=== PATIENT | male | born 1975 | race Caucasian/White ===

== ENCOUNTER 2020-06-03 12:32 | Outpatient (CLI) | payer BC, SELFPAY ==
[2020-06-03] MEDS: diphenhydrAMINE 50 mg/mL SDV 1mL 25 MG IVP (13:30)
[2020-06-03] MEDS: acetaminophen 500 mg Tablet 1000 MG PO (13:49)
== END 2020-06-03 12:33 | disposition home or self-care (01) ==
LOC: NSACUTE 12:37
PROVIDERS: PCP Orthopaedic Surgery; Visit Provider Specialist
DX: G35 Multiple sclerosis (principal); R30.0 Dysuria; F17.210 Nicotine dependence, cigarettes, uncomplicated
CPT/HCPCS: 96365; 96366; 96375; 99204; J1200; J2350; J2930; J7040

== ENCOUNTER 2020-06-30 10:48 | Outpatient (CLI) | payer BC, SELFPAY ==
--- NOTE | 2020-06-30 11:00 | MR_ITS ---
WS: [id number] MRI LUMBAR SPINE WITH AND WITHOUT CONTRAST. HISTORY: G35 - Multiple sclerosis COMPARISON: None available. TECHNIQUE: Sagittal and axial multisequence imaging is submitted. Sagittal and axial T1 fat sat seque nces post-ProHance 17 cc IV. Mild straightening of the normal lumbar lordosis. Prior lumbar fusion with both fusion hardware from L1 to L3. No marrow edema or acute fractures identified. Very limited evaluation of the L2 vertebral body due to artifact from the fusion. Disc spaces and vertebral body heights are well-preserved. Conus is slightly distorted but and at the L1-2 level. L1-L2: Mild annular disc bulging. L2-L3: No stenosis. L3-L4: Mild ligamentum flavum hypertrophy. No stenosis. L4-L5: Mild facet joint arthritis without stenosis. L5-S1: A tiny central disc protrusion with no stenosis. Postcontrast images are negative. No enhancing lesions visualized in the lumbar spine. The conus is o bscured by artifact from the hardware related to the fusion. MR/MR lumbar spine wo/w con [id number] IMPRESSION: 1. Prior lumbar fusion from L1 to L2. Fusion hardware is causing significant a rtifact through the L2 vertebral body and the conus. 2. No areas of abnormal enhancement identified or stenosis.
--- NOTE | 2020-06-30 11:45 | MR_ITS ---
WS: [id number] MRI THORACIC SPINE with and without contrast. HISTORY: G35 - Multiple sclerosis COMPARISON: None available. TECHNIQUE: Multiplanar sequences are performed in sagittal and axial planes. Anterior cervical fusion at C5-6. Seen only on the sagittal survey is some very slight increased sign al in the central cervical cord at the C4 level which cannot be adequately evaluated without a dedica refugio cervical MRI exam. Very slight increase in the thoracic kyphosis. No marrow edema or fracture. Signal within the cord is normal. No atrophy or cord enlargement. There is no enhancement. Note T2 hyperintensities. No disc p rotrusions or stenosis. T1-2: Normal. T2-3: Normal. T3-4: Normal. T4-5: Normal. T5-6: Normal. T6-7: Very tiny central disc protrusion with annular fissure. T7-8: Normal. T8-9: Mild bilateral facet joint arthritis. T9-10: Normal. T10-11: Mild facet and ligamentum flavum hypertrophy. Mild LEFT foraminal narrowing. T11-12: Normal. MR/MR thoracic spine wo/w [id number] IMPRESSION: 1. No demyelinating lesions within the thoracic cord. 2. Seen only on the sagittal survey is increased signal in the cervical cord a t C4 which may be a demyelinating lesion. If prior cervical MRI has not been pe rformed suggest evaluation of the cervical spine by contrast enhanced MRI.
== END 2020-06-30 10:49 | disposition home or self-care (01) ==
LOC: RADSHAW 10:53
PROVIDERS: PCP Specialist; Visit Provider Specialist
DX: G35 Multiple sclerosis (principal); R93.7 Abnormal findings on diagnostic imaging of other parts of musculoskeletal system; Z98.1 Arthrodesis status
CPT/HCPCS: 72157; 72158; A9579

== ENCOUNTER 2020-07-02 08:31 | Outpatient (CLI) | payer BC, SELFPAY ==
--- NOTE | 2020-07-02 08:45 | MR_ITS ---
WS: [id number] MRI HEAD WITH CONTRAST TECHNIQUE: Sagittal T1, T2 axial, T2 axial FLAIR, axial susceptibility weighted imaging, axial diffus ion weighted images, and coronal T2 images were obtained. Pre and post-T1 axial and post T1 coronal i mages. ADC and FSPGR images. CLINICAL INFORMATION: G35 - Multiple sclerosis COMPARISON: None. FINDINGS: No evidence of restricted diffusion to suggest acute ischemia. Ventricular system and basal cisterns are patent. Mild patchy supratentorial periventricular and pericallosal white matter changes more pro minent in the parietal and occipital periventricular white matter. Small white matter lesions about t he splenium involving the major forceps. No abnormal gadolinium enhancement. No enhancing lesions to indicate active demyelinating disease. Normal posterior fossa. Normal vascular flow voids at the skull base. No extra-axial fluid collection s. Paranasal sinuses and mastoid air cells are well aerated. Normal optic chiasm and pituitary infund ibulum. No significant atrophy of the corpus callosum. No significant T1 hypointense lesion load. No hemoside rin on the susceptibility weighted images. MR/MR head wo/w con [id number] IMPRESSION: 1. Mild patchy supratentorial periventricular and pericallosal white matter ch anges suspicious for demyelinating disease. 2. No enhancing lesions to indicate active disease. 3. No significant atrophy of the corpus callosum. No significant parenchymal v olume loss. 4. No significant T1 hypointense lesion load.
--- NOTE | 2020-07-02 09:30 | MR_ITS ---
WS: [id number] MRI CERVICAL SPINE NONCONTRAST AND CONTRAST TECHNIQUE: Sagittal T1, T2 and STIR imaging. Axial T2, gradient, and fiesta imaging. CLINICAL INFORMATION: G35 - Multiple sclerosis COMPARISON: Recent thoracic and lumbar spine MRI FINDINGS: Straightening of the normal cervical lordosis. Prior postoperative changes anterior cervical fusion C 5-C6. No high-grade central canal stenosis. T2 hyperintense lesion at the C3-4 level involving the do rsal columns. This extends over approximately 1.5 CM. Additional eccentric lesion at the C4 level ecc entric to the right suspicious for demyelinating disease. Additional T2 hyperintense lesion partially visualized at the C7-T1. No enhancing lesions to indicate active disease. No significant cord atroph y. C2-C3: Normal. C3-C4: Mild bilateral foraminal narrowing. Mild facet arthropathy. Spinal canal is patent. C4-C5: Mild left greater than right bony foraminal narrowing. Spinal canal is patent. Mild facet arth ropathy. C5-C6: Postoperative changes anterior interbody cervical fusion. Mild facet arthropathy. Spinal canal and foramen are patent. C6-C7: Moderate left and mild right bony foraminal narrowing. Mild disc osteophytic ridging. Spinal c anal is patent. C7-T1: Mild left and no significant right foraminal narrowing. Spinal canal is patent MR/MR cervical spine wo/w [id number] IMPRESSION: 1. T2 hyperintense dorsal midline lesion at the C4 level extending over approx imately 1.5 cm corresponds to lesion seen on the prior imaging. Additional ecce ntric T2 hyperintense lesion at this level. 2. Additional partially visualized T2 hyperintense cord lesion at C7-T1 edge o f the [id number]. 3. Findings are suspicious for demyelinating disease considering intracranial findings 4. No enhancing lesions to indicate active disease. 5. No significant cord atrophy. 6. Prior postoperative changes anterior interbody cervical fusion C5-C6. 7. Mild to moderate bony foraminal narrowing described above worse at left C6- 7.
== END 2020-07-02 08:32 | disposition home or self-care (01) ==
LOC: RADSHAW 08:32
PROVIDERS: PCP Specialist; Visit Provider Specialist
DX: G35 Multiple sclerosis (principal)
CPT/HCPCS: 70553; 72156; A9579

== ENCOUNTER 2020-12-02 10:10 | Outpatient (CLI) | payer BC, SELFPAY ==
[2020-12-02] MEDS: acetaminophen 500 mg Tablet 1000 MG PO (10:22)
[2020-12-02] MEDS: diphenhydrAMINE 50 mg/mL SDV 1mL 12.5 MG IVP (10:28)
== END 2020-12-02 10:11 | disposition home or self-care (01) ==
PROVIDERS: PCP Specialist; Visit Provider Specialist
DX: G35 Multiple sclerosis (principal); R56.9 Unspecified convulsions; G89.0 Central pain syndrome; R20.0 Anesthesia of skin; R20.2 Paresthesia of skin; F17.210 Nicotine dependence, cigarettes, uncomplicated
CPT/HCPCS: 96365; 96366; 96375; 99215; J1200; J2350; J2930; J7040

== ENCOUNTER 2021-02-08 18:15 | Emergency (ER) | payer BC, SELFPAY ==
--- NOTE | 2021-02-08 18:15 | W.ED.GENADLT ---
HPI - General Adult General: Chief complaint: Seizure Stated complaint: SEIZURES History of Present Illness: HPI narrative: Mr. Eugene is a 45-year-old male with a significant past medical history of multiple sclerosis who presents to the emergency department with a chief complaint of seizure. He reports being at his baseline health and feeling normal earlier today. He perhaps ate a little less than typical however was not exerting himself. He sat down and was working on prepping food for dinner when he had sudden onset of seizure-like activity. This was witnessed and reportedly there was no associated fall/head trauma. The patient did have urinary incontinence but no tongue biting. He does not have a seizure history. Subsequent to this event he had marked weakness which has been gradually improving. He has never had similar episodes in the past. The weakness is symmetric. He has baseline numbness and tingling associated with his multiple sclerosis. There are no other specific exacerbating or alleviating factors reported. Review of Systems General: Reports: 10 or more systems reviewed and unremarkable except in HPI and below Narrative: CONSTITUTIONAL: denies fever, fatigue, see HPI EYES - denies pain, denies loss of vision EARS - denies ear issues. NOSE - denies congestion or rhinorrhea. THROAT - denies sore throat or difficulty swallowing. CARDIOVASCULAR - denies chest pain and palpitations RESPIRATORY - denies shortness of breath and cough GASTROINTESTINAL - denies abdominal pain, no nausea vomiting, no changes in bowel habits GENITOURINARY - denies dysuria or urinary frequency MUSCULOSKELETAL- denies deformity or pain SKIN - denies rashes or new changed skin lesions NEUROLOGIC -baseline sensory changes, new onset global weakness, seizure HEMATOLOGIC/LYMPHATIC - denies easy bruising or lymphadenopathy. CR[facility]ICAL ACCESS [facility] ED PFSH: Medical History (Updated 02/08/21 @ 21:28 by Rl Zafar MD) Multiple sclerosis Seizure Surgical History History of back surgery Family History Other CAD (coronary artery disease) Cancer Social History Smoking and tobacco status: current every day smoker Alcohol intake: never History of recent travel: No Physical Exam Narrative: EXAM NARRATIVE: GENERAL/CONSTITUTIONAL - well-appearing. No acute distress. Generalized symmetric weakness Eyes - PERRL, no conjunctival injection ENMT - Atraumatic external nose and ears. Moist mucous membranes NECK - supple. trachea midline CARDIOVASCULAR - regular rate and rhythm. Peripheral pulses 2+ and equal RESPIRATORY -clear to auscultation bilaterally. No retractions or accessory muscle use. ABDOMEN/GI - Nontender/Nondistended. No tenderness to percussion or evidence of peritonitis MSK - Extremities without obvious deformity or tenderness to palpation SKIN - Warm, Dry NEURO - alert and appropriately oriented. strength and sensation intact. Moves all extremities equally. Cranial nerves II through XII intact. PSYCH - Appropriate mood and affect Course ED course: - Patient was seen and evaluated by me at bedside - Patient placed on cardiac monitors, IV access obtained - Initial evaluation notable for no acute distress, nontoxic appearance. No focal neurologic deficits though patient does have mild generalized weakness which is symmetric in upper lower extremities. - Labs and imaging obtained and reviewed - Fluids given - Labs notable for mild leukocytosis which is likely reactive secondary to seizure. No significant metabolic abnormality to explain symptoms. - Imaging notable for no acute intracranial hemorrhage or mass. No evidence of infection on chest x-ray. - Upon serial reexamination after treatment the patient was improved after fluids with return to normal baseline strength and function. Case was discussed with Dr. Hernandez of neurology who recommended antiepileptic medications which were prescribed. Patient will be scheduled for neurology follow-up and EEG. - Based on patient history, evaluation, labs, and imaging as interpreted the most likely cause of the patient's condition is seizure - The results of ED evaluation were discussed with the patient including prescriptions and/or symptomatic cares including appropriate and responsible use, followup plan, and return precautions. Seizure precautions discussed. The patient verbalized understanding and felt safe for discharge. - Patient discharged in satisfactory condition. Vital Signs: Vital signs: Vital Signs Temperature 97.7 F 02/08/21 18:18 Pulse Rate 96 02/08/21 22:25 Respiratory Rate 20 H 02/08/21 22:25 Blood Pressure 95/59 02/08/21 22:25 Pulse Oximetry 96 02/08/21 22:25 MDM - General Adult Medical Records: Attestation: I reviewed the patient's medical records. Lab Data: Attestation: I reviewed the patient's lab results. Labs: Lab Results 02/08/21 02/08/21 02/08/21 Range/Units 18:40 18:40 19:03 WBC 14.0 H (4.0-10.0) 10^3/ uL RBC 4.54 (4.1-5.3) 10^6/u L Hgb 13.8 (11.7-16.6) g/dL Hct 43.9 (42.0-52.0) % MCV 96.7 H (80-94) fL MCH 30.4 (28.0-34.0) pg MCHC 31.4 (30.0-36.0) g/dL RDW 14.1 (12.1-15.1) % Plt Count 244 (130-400) 10^3/c mm MPV 9.3 (7.4-10.4) fL Neut % (Auto) 83.1 % Lymph % (Auto) 8.1 % Dupage % (Auto) 6.3 % Eos % (Auto) 1.1 % Baso % (Auto) 0.6 % Neut # (Auto) 11.63 H (1.8-7.7) 10^3/u L Lymph # (Auto) 1.1 (0.8-4.8) 10^3/u L Dupage # (Auto) 0.9 (0.2-0.9) 10^3/u L Eos # (Auto) 0.2 (0.0-0.8) 10^3/u L Baso # (Auto) 0.1 (0.0-0.1) 10^3/u L Nucleated RBC % (a uto) 0 % Nucleated RBCs # 0.0 /100WBC Sodium 139 (136-145) mmol/L Potassium 3.9 (3.5-5.1) mmol/L Chloride 107 (98-107) mmol/L Carbon Dioxide 24 (22-29) mmol/L Anion Gap 11.9 (5-19) BUN 14 (6-20) mg/dL Creatinine 0.8 (0.7-1.2) mg/dL GFR Calculation 105.0 (90-130) mL/min Glucose 87 (65-115) mg/dL POC Glucose 89 (70-110) mg/dL Calculated Osmolal ity 288 (285-295) mOsm/k g Calcium 8.3 L (8.5-10.5) mg/dL Phosphorus 3.2 (2.5-4.5) mg/dL Magnesium 2.0 (1.7-2.3) mg/dL Total Bilirubin 0.2 (0.15-1.2) mg/dL AST 13 (0-40) U/L ALT 13 (0-41) U/L Alkaline Phosphata se 53 (40-130) IU/L Total Protein 6.0 L (6.6-8.7) g/dL Albumin 3.8 (3.5-5.2) g/dL Globulin 2.2 (1.3-4.6) g/dL TSH 0.98 (0.27-4.20) uIU/ mL SARS-CoV-2 Ag (Rap id) (Negative) 02/08/21 Range/Units 19:32 WBC (4.0-10.0) 10^3/ uL RBC (4.1-5.3) 10^6/u L Hgb (11.7-16.6) g/dL Hct (42.0-52.0) % MCV (80-94) fL MCH (28.0-34.0) pg MCHC (30.0-36.0) g/dL RDW (12.1-15.1) % Plt Count (130-400) 10^3/c mm MPV (7.4-10.4) fL Neut % (Auto) % Lymph % (Auto) % Dupage % (Auto) % Eos % (Auto) % Baso % (Auto) % Neut # (Auto) (1.8-7.7) 10^3/u L Lymph # (Auto) (0.8-4.8) 10^3/u L Dupage # (Auto) (0.2-0.9) 10^3/u L Eos # (Auto) (0.0-0.8) 10^3/u L Baso # (Auto) (0.0-0.1) 10^3/u L Nucleated RBC % (a uto) % Nucleated RBCs # /100WBC Sodium (136-145) mmol/L Potassium (3.5-5.1) mmol/L Chloride (98-107) mmol/L Carbon Dioxide (22-29) mmol/L Anion Gap (5-19) BUN (6-20) mg/dL Creatinine (0.7-1.2) mg/dL GFR Calculation (90-130) mL/min Glucose (65-115) mg/dL POC Glucose (70-110) mg/dL Calculated Osmolal ity (285-295) mOsm/k g Calcium (8.5-10.5) mg/dL Phosphorus (2.5-4.5) mg/dL Magnesium (1.7-2.3) mg/dL Total Bilirubin (0.15-1.2) mg/dL AST (0-40) U/L ALT (0-41) U/L Alkaline Phosphata se (40-130) IU/L Total Protein (6.6-8.7) g/dL Albumin (3.5-5.2) g/dL Globulin (1.3-4.6) g/dL TSH (0.27-4.20) uIU/ mL SARS-CoV-2 Ag (Rap id) Negative (Negative) Imaging Data^: CXR: Attestation: I personally reviewed and interpreted this imaging study as follows: My impression: No lobar consolidation. No pneumothorax Radiologist's impression: No acute findings Discharge Plan Discharge Patient Disposition: Home Clinical Impression: Seizure Condition: Stable Prescriptions: New Keppra XR 500 mg tablet extended release 24 hr 1,000 mg PO DAILY 30 Days Qty: 60 RF: 0 No Action Chantix 0.5 mg tablet 0.5 mg PO DAILY RF: 0 cyclobenzaprine 10 mg tablet 10 mg PO TID RF: 0 simvastatin 20 mg tablet 20 mg PO DAILY RF: 0 docusate sodium 100 mg capsule 100 mg PO DAILY RF: 0 hydrocodone-acetaminophen 10-325 mg tablet 1 tab PO BID PRNRF: 0 prednisone 10 mg tablet 10 mg PO DAILY RF: 0 ibuprofen 200 mg tablet 800 mg PO Q12H PRNRF: 0 gabapentin 400 mg capsule 400 mg PO QID Qty: 120 RF: 5 duloxetine [Cymbalta] 60 mg capsule,delayed release(DR/EC) 60 mg PO DAILY Qty: 30 RF: 5 tamsulosin 0.4 mg capsule 0.4 mg PO DAILY Qty: 30 RF: 5 baclofen 20 mg tablet 20 mg PO DAILY Qty: 30 RF: 5 sulfamethoxazole-trimethoprim 800-160 mg tablet 1 tab PO DAILY 10 Days Qty: 10 RF: 0 sulfamethoxazole-trimethoprim 800-160 mg tablet 1 tab PO DAILY 10 Days Qty: 10 RF: 0 Discharge Orders: Discharge ED (Routine); Ordered 02/08/21 Ordered By: lR Zafar Referrals: Rafia Hernandez MD [Primary Care Provider] - Discharge Diet: Usual diet Discharge Activity: Resume usual activity Patient Instructions: New-Onset Seizure in Adults (ED) Activity Restrictions/Additional Instructions: Thank you for visiting the emergency department. You were seen and evaluated for seizure. The exact cause of this is somewhat unclear though may be related to your MS. After discussion with your neurologist you will be started on a medication to prevent seizures. Please take this as directed. Please follow-up with your primary care provider and neurologist. As discussed please follow seizure precautions including not driving for 6 months and not performing any dangerous tasks were you to have another seizure. Please return to the emergency department if you experience recurrent seizures or anything else that you are concerned about and feel needs emergency department evaluation. Coding Level of Care Code ED Sheltered Workshop Worker for Porfirio Torres
[2021-02-08 18:18] VITALS: BP 90/51; PULSE 71; RESP 17; TEMP 36.5; O2SAT 96; BMI 23.7
[2021-02-08 18:25] VITALS: BP 107/76; PULSE 69; RESP 22; O2SAT 97
--- NOTE | 2021-02-08 18:29 | XRR_ITS ---
PROCEDURE INFORMATION: Exam: XR Chest Exam date and time: 02/08/2021 6:29 PM Age: 45 years old Clinical indication: Other: Weakness; Additional info: Weakness, new seizures TECHNIQUE: Imaging protocol: XR of the chest. Views: 1 view. COMPARISON: MR cervical spine wo/w [id number] 07/02/2020 9:07 AM FINDINGS: Lungs: Unremarkable. No consolidation. Pleural spaces: Unremarkable. No pleural effusion. No pneumothorax. Heart/Mediastinum: Unremarkable. No cardiomegaly. Bones/joints: Unremarkable. XR/XR chest 1V portable [id number] IMPRESSION: No acute findings.
--- NOTE | 2021-02-08 18:29 | CTR_ITS ---
PROCEDURE INFORMATION: Exam: CT Head Without Contrast Exam date and time: 02/08/2021 6:29 PM Age: 45 years old Clinical indication: Patient HX: New seizure activity; Additional info: New onset seizures TECHNIQUE: Imaging protocol: Computed tomography of the head without contrast. Radiation optimization: All CT scans at this facility use at least one of these dose optimization techniques: automated exposure control; mA and/or kV adjustment per patient size (includes targeted exams where dose is matched to clinical indication); or iterative reconstruction. COMPARISON: MR head wo/w con [id number] 07/02/2020 9:40 AM RADIATION DOSE METRICS: Total DLP (mGy-cm): 902.27 FINDINGS: Brain: Normal. No hemorrhage. Unremarkable white matter. No mass effect. Cerebral ventricles: No ventriculomegaly. Paranasal sinuses: Mucosal thickening in the ethmoid sinuses. Mastoid air cells: Visualized mastoid air cells are well aerated. Bones/joints: Unremarkable. No acute fracture. Soft tissues: Unremarkable. CT/CT head wo con* [id number] IMPRESSION: No acute intracranial abnormality. Radiation Dose CTDIVOL = (mGy): DLP = 902.27 (mGy-cm)
[2021-02-08 18:30] VITALS: O2SAT 97
[2021-02-08 18:50] LABS: Basophils # 0.1 10^3/uL (0.0-0.1); Basophils % 0.6 %; Eosinophils # 0.2 10^3/uL (0.0-0.8); Eosinophils % 1.1 %; Hematocrit 43.9 % (42.0-52.0); Hemoglobin 13.8 g/dL (11.7-16.6); Lymphocytes # 1.1 10^3/uL (0.8-4.8); Lymphocytes % 8.1 %; Mean Corpuscular HGB Conc 31.4 g/dL (30.0-36.0); Mean Corpuscular Hemoglobin 30.4 pg (28.0-34.0); Mean Corpuscular Volume 96.7 fL (80-94); Mean Platelet Volume 9.3 fL (7.4-10.4); Monocytes # 0.9 10^3/uL (0.2-0.9); Monocytes % 6.3 %; Neutrophils # 11.63 10^3/uL (1.8-7.7); Neutrophils % 83.1 %; Nucleated Red Blood Cells % 0 %; Platelet Count 244 10^3/cmm (130-400); Red Blood Count 4.54 10^6/uL (4.1-5.3); Red Cell Distribution Width 14.1 % (12.1-15.1)
[2021-02-08] MEDS: sodium chloride 0.9% 1,000 ML 999 ML IV (18:57)
[2021-02-08 19:05] LABS: Glucose Point of Care 89 mg/dL (70-110)
[2021-02-08 19:27] LABS: Alanine Aminotransferase 13 U/L (0-41); Albumin Level 3.8 g/dL (3.5-5.2); Alkaline Phosphatase 53 IU/L (40-130); Anion Gap 11.9 (5-19); Aspartate Amino Transferase 13 U/L (0-40); Blood Urea Nitrogen 14 mg/dL (6-20); Calcium 8.3 mg/dL (8.5-10.5); Carbon Dioxide 24 mmol/L (22-29); Chloride 107 mmol/L (98-107); Creatinine Clr Calc Pharmacy 130.5193; Globulin 2.2 g/dL (1.3-4.6); Glucose 87 mg/dL (65-115); Osmolality Calculated 288 mOsm/kg (285-295); Phosphorus 3.2 mg/dL (2.5-4.5); Potassium 3.9 mmol/L (3.5-5.1); Sodium 139 mmol/L (136-145); Thyroid Stimulating Hormone 0.98 uIU/mL (0.27-4.20); Total Bilirubin 0.2 mg/dL (0.15-1.2)
[2021-02-08 22:03] LABS: SARS Covid-2 Antigen Negative (Negative)
[2021-02-08 22:25] VITALS: BP 95/59; PULSE 96; RESP 20; O2SAT 96
--- NOTE | 2021-02-09 08:40 | DCPLANNER ---
imaging manager had message to schedule a follow up appointment for patient with neurology, and an EEG. imaging manager emailed patients information to the neurology clinic. Patients information will be printed and reviewed. Clinic will call patient with appointment information. imaging manager also had order for an EEG, will fax that order to Dr. Melo office. Clinic will call patient with both appointments.
--- NOTE | 2021-02-10 07:56 | DCPLANNER ---
Patient has a follow up appointment scheduled for Wednesday, February 10, 2021 at 12:[address] Hernandez. Clinic will call patient with appointment information.
--- NOTE | 2021-02-20 14:32 | DCPLANNER ---
Patient had a follow up appointment scheduled for 02.10.21 with - patient did attend appointment.
== END 2021-02-08 22:27 | disposition home or self-care (01) ==
PROVIDERS: Emergency Provider Emergency Medicine; PCP Specialist
DX: R56.9 Unspecified convulsions (principal); G35 Multiple sclerosis; F17.210 Nicotine dependence, cigarettes, uncomplicated; Z20.822 Contact with and (suspected) exposure to COVID-19
CPT/HCPCS: 36416; 70450; 71045; 80053; 82962; 83735; 84100; 84443; 85025; 87426; 96361; 96374; 99284; J1953; J7030

== ENCOUNTER → 2021-02-10 11:42 | Outpatient (BNVA) | payer BC, SELFPAY | PROVIDERS: PCP Specialist; Visit Provider Specialist | DX: G35 Multiple sclerosis (principal); R56.9 Unspecified convulsions; G89.0 Central pain syndrome; R55 Syncope and collapse; R00.2 Palpitations; F17.200 Nicotine dependence, unspecified, uncomplicated | CPT/HCPCS: 99215 ==

== ENCOUNTER → 2021-04-06 15:02 | Outpatient (BNVA) | payer BC, SELFPAY | PROVIDERS: PCP Specialist; Visit Provider Specialist | DX: R55 Syncope and collapse (principal); F17.200 Nicotine dependence, unspecified, uncomplicated | CPT/HCPCS: 95816 ==

== ENCOUNTER → 2021-04-07 09:54 | Outpatient (BNVA) | payer BC, SELFPAY | PROVIDERS: PCP Specialist; Visit Provider Specialist | DX: G35 Multiple sclerosis; R56.9 Unspecified convulsions; Z71.85 Encounter for immunization safety counseling; F17.200 Nicotine dependence, unspecified, uncomplicated; R55 Syncope and collapse | CPT/HCPCS: 99215 ==

== ENCOUNTER 2021-06-02 10:13 | Outpatient (CLI) | payer BC, SELFPAY ==
[2021-06-02 10:23] VITALS: BP 107/67; PULSE 63; RESP 16; TEMP 36.3; O2SAT 100
[2021-06-02] MEDS: acetaminophen 500 mg Tablet 1000 MG PO (10:50)
[2021-06-02] MEDS: sodium chloride 0.9% 250 ML 50 ML IV (10:54)
[2021-06-02] MEDS: diphenhydrAMINE 50 mg/mL SDV 1mL 25 MG IV (10:54)
[2021-06-02 11:39] VITALS: BP 96/67; PULSE 56; RESP 16; TEMP 36.2; O2SAT 98
[2021-06-02 12:19] VITALS: BP 101/65; PULSE 65; RESP 16; TEMP 36.3; O2SAT 97
[2021-06-02 13:29] VITALS: BP 104/72; PULSE 63; RESP 16; TEMP 36.3; O2SAT 98
== END 2021-06-02 10:14 | disposition home or self-care (01) ==
LOC: ONCMED 10:17
PROVIDERS: PCP Specialist; Referring Provider Specialist; Visit Provider Internal Medicine Medical Oncology
DX: Z51.12 Encounter for antineoplastic immunotherapy (principal); G35 Multiple sclerosis
CPT/HCPCS: J1200; J2350; J2930; J7040; J7050

== ENCOUNTER → 2023-12-05 13:56 | Outpatient (BNVA) | payer BC, SELFPAY | PROVIDERS: PCP Nurse Practitioner Family; Visit Provider Nurse Practitioner Family | DX: G35 Multiple sclerosis (principal); R35.0 Frequency of micturition; Z79.899 Other long term (current) drug therapy; Z13.6 Encounter for screening for cardiovascular disorders; R13.10 Dysphagia, unspecified; Z12.11 Encounter for screening for malignant neoplasm of colon; N40.0 Benign prostatic hyperplasia without lower urinary tract symptoms | CPT/HCPCS: 80053; 80061; 81003; 82306; 83036; 84443; 85025 ==

== ENCOUNTER 2024-03-01 07:54 | Day surgery (SDC) | payer BC, SELFPAY ==
[2024-03-01 08:09] VITALS: BP 114/69; PULSE 58; RESP 16; TEMP 36.8; O2SAT 99
[2024-03-01 08:10] VITALS: BMI 24.4
[2024-03-01] MEDS: sodium chloride 0.9% 1,000 ML 30 ML IV (08:20)
--- NOTE | 2024-03-01 08:41 | W.PM.OPSFHP ---
Same Day Surgery H&P Indication for Procedure/HPI DATE OF PROCEDURE: March 01, 2024 CHIEF COMPLAINT/INDICATIONFOR SURGICAL PROCEDURE: reflux and need for screening PREOP DIAGNOSIS: reflux and need for screening PLANNED PROCEDURE: Operation Date: 03/01/24 09:05 Proposed Procedures p EGD 82976, 44162, G0105, R13.101, Z12.11(Not Applicable) - Tree Caal MD s Colonoscopy(Not Applicable) - Tree Caal MD Medications/Allergies* Home Medications Medication Instructions Recorded Confirmed Type ibuprofen 200 mg tablet 800 mg PO Q12H PRN Pain 06/03/20 03/01/24 History ocrelizumab 30 mg/mL intravenous 30 mg IV .[id number] 04/06/21 03/01/24 History solution (Ocrevus) magnesium 1 tab PO DAILY 02/28/24 03/01/24 History tamsulosin 0.4 mg capsule 0.4 mg PO DAILY 02/28/24 03/01/24 History Allergies/Adverse Reactions Allergy/AdvReac Type Severity Reaction Status Date / Time Penicillins Allergy Unknown Unknown Verified 02/28/24 10:11 fluoxetine [From Prozac] Allergy swelling Verified 02/28/24 10:11 Current Medications: Generic Name Dose Route Start Last Admin Trade Name Freq PRN Reason Stop Dose Admin Sodium Chloride 1,000 mls @ 30 mls/hr 03/01/24 08:00 03/01/24 08:20 Sodium Chloride 0.9% IV 30 mls/hr .Q24H SUDHA Administration Pertinent History/Comorbid Conditions* Medical History (Updated 12/09/23 @ 08:49 by KOREY Menjivar) BPH (benign prostatic hyperplasia) Colon cancer screening Dysphagia Encounter for screening for cardiovascular disorders Medication management Urinary frequency Multiple sclerosis Seizure Surgical History (Updated 06/03/20 @ 19:58 by Rafia Hernandez MD) History of back surgery Family History (Updated 09/20/19 @ 14:44 by AIDAN Muniz) CAD (coronary artery disease) Cancer Social History Smoking and tobacco/nicotine status: current every day tobacco/nicotine user Alcohol intake: never Substance/Drug Use: never Pertinent Exam Findings alert, oriented x 3 and clear to auscultation bilaterally Recommendations Surgery/Procedure today Coding Level of Care Code Acute Code for Chg Fwd
--- NOTE | 2024-03-01 08:51 | ANES.PREANE2 ---
Pre-Anesthetic Assessment Height/Weight: Height 1.83 m Weight 81.647 kg Temp Pulse Resp BP Pulse Ox O2 Del Method 98.2 F 58 L 16 114/69 99 Room Air 03/01/24 08:09 03/01/24 08:09 03/01/24 08:09 03/01/24 08:09 03/01/24 08:09 03/01/24 08:09 Preop Diagnosis: reflux and need for screening Operation Date: 03/01/24 09:05 Proposed Procedures p EGD 29586, 94738, G0105, R13.101, Z12.11(Not Applicable) - Tree Caal MD s Colonoscopy(Not Applicable) - Tree Caal MD Familial anesthetic complications: None Was Beta Aliya taken within 24 hours: N/A Was Clonidine taken within 24 hours: N/A Last intake: Intake Last Liquid Date 02/29/24 Last Liquid Time 22:30 Last Solid Date 02/28/24 Last Solid Time 19:00 Social Tobacco and No alcohol Exam alert, oriented x 3, clear to auscultation bilaterally and regular rate & rhythm Airway Mallampati: Class II Dentition: chipped Neuropsych Seizure (1 seizure, over 1 year ago, thought to be related to BP) Multiple Sclerosis- patient informed of risk of flair associated with anesthesia Anesthetic Plan ASA status: 2 Anesthesia: MAC Risk of > 500 ml blood loss (7ml/kg in children): No Medications/Allergies Home Medications Medication Instructions Recorded Confirmed Last Taken Type ibuprofen 200 mg tablet 800 mg PO Q12H PRN Pain 06/03/20 03/01/24 02/29/24 History ocrelizumab 30 mg/mL intravenous 30 mg IV .[id number] 04/06/21 03/01/24 01/02/24 History solution (Ocrevus) magnesium 1 tab PO DAILY 02/28/24 03/01/24 02/27/24 History tamsulosin 0.4 mg capsule 0.4 mg PO DAILY 02/28/24 03/01/24 02/27/24 History Allergies Allergy/AdvReac Type Severity Reaction Status Date / Time Penicillins Allergy Unknown Unknown Verified 02/28/24 10:11 fluoxetine [From Prozac] Allergy swelling Verified 02/28/24 10:11 Current Medications Generic Name Dose Route Start Last Admin Trade Name Freq PRN Reason Stop Dose Admin Sodium Chloride 1,000 mls @ 30 mls/hr 03/01/24 08:00 03/01/24 08:20 Sodium Chloride 0.9% IV 30 mls/hr .Q24H SUDHA Administration PFSH Anesthesia Medical History (Updated 12/09/23 @ 08:49 by KOREY Menjivar) BPH (benign prostatic hyperplasia) Colon cancer screening Dysphagia Encounter for screening for cardiovascular disorders Medication management Urinary frequency Multiple sclerosis Seizure Surgical History History of back surgery Family History Other CAD (coronary artery disease) Cancer Social History Smoking and tobacco/nicotine status: current every day tobacco/nicotine user Alcohol intake: never Substance/Drug Use: never Data Anesthesia Cardiac Studies: No Data to Display
[2024-03-01 10:10] VITALS: BP 86/71; PULSE 60; RESP 16; TEMP 36.1; O2SAT 98
[2024-03-01 10:28] VITALS: BP 107/74; PULSE 70; RESP 18; O2SAT 97
--- NOTE | 2024-03-01 10:40 | ANE.PACU2 ---
Inpatient post-anesthesia follow up: Airway intact: Yes Vital signs: Temperature 97 F Pulse Rate 70 Respiratory Rate 18 Blood Pressure 107/74 Pulse Oximetry 97 Oxygen Delivery Me thod Room Air Oxygen Flow Rate Fraction of Inspir ed Oxygen Hydration adequate: Yes Nausea and vomiting: No Pain level: 1 Mental status: Baseline
== END 2024-03-01 10:41 | disposition home or self-care (01) ==
PROVIDERS: PCP Nurse Practitioner Family; Visit Provider Surgery
PROC: 0DJ08ZZ Inspection of Upper Intestinal Tract, Via Natural or Artificial Opening Endoscopic (ICD-10-PCS; CPT 43235; principal; 2024-03-01 09:05)
PROC: 0DJD8ZZ Inspection of Lower Intestinal Tract, Via Natural or Artificial Opening Endoscopic (ICD-10-PCS; CPT 45378; 2024-03-01 09:05)
DX: Z12.11 Encounter for screening for malignant neoplasm of colon (principal); K21.9 Gastro-esophageal reflux disease without esophagitis; N40.0 Benign prostatic hyperplasia without lower urinary tract symptoms; K44.9 Diaphragmatic hernia without obstruction or gangrene; K29.70 Gastritis, unspecified, without bleeding; D12.8 Benign neoplasm of rectum; F17.200 Nicotine dependence, unspecified, uncomplicated; G35 Multiple sclerosis
CPT/HCPCS: 43239; 45380; 88305; J2704; J7030